=== PATIENT | female | born 1995 | race Two or more races ===

== ENCOUNTER 2019-04-18 11:27 | Emergency (ER) | payer MEDICAID ==
[~2019-04-18] VITALS: Ht 165.1 cm; Wt 59.0 kg
[2019-04-18 12:12] VITALS: BP 114/70
== END 2019-04-18 13:30 | disposition left against medical advice (07) ==
LOC: ER 11:41
DX: R06.02 Shortness of breath (principal); Z53.21 Procedure and treatment not carried out due to patient leaving prior to being seen by health care provider